=== PATIENT | male | born 1990 | race Caucasian/White ===

== ENCOUNTER 2017-04-30 16:23 | Emergency (ER) | payer OTHER ==
[~2017-04-30 16:23] MED LIST: BACTRIM DS1 TAB PO; OXYCONTIN C/R20 MG PO; PERCOCET1 TA1 PO
--- NOTE | 2017-04-30 17:43 | DIAGNOSTIC IMAGING REPORT ---
PROCEDURE: XR HAND 3 OR 4 VIEWS - RIGHT INDICATION: TRAUMA/INJURY TECHNIQUE: Four views. COMPARISON: Right hand x-ray 05/08/2011. FINDINGS: Fracture of the distal fifth metacarpal with mild volar angulation of the distal fragment. No additional abnormalities. IMPRESSION: 1. Right fifth metacarpal fracture.
--- NOTE | 2017-04-30 18:01 | ED CLINICAL REPORT ---
Clinical Report - Physicians/Mid Levels [facility] [address] [place] [address] 04/30/2017 16:25 Patient: JOSUE VIDAL Time Seen: 1640. Arrived- By private vehicle. Historian- patient. HISTORY OF PRESENT ILLNESS Chief Complaint: Injury to the right hand. The injury happened today. Occurred at home. ( punched the mount for a punching back on accident). Patient is experiencing moderate pain. Patient denies injury to the head or neck. No other injury. REVIEW OF SYSTEMS The patient has had swelling. No tingling, numbness, weakness, foreign body or skin laceration. All systems otherwise negative, except as recorded above. PAST HISTORY See nurses notes. The patient's dominant hand is the right. Tetanus immunization status is up-to-date. Medications: None. Allergies: Compazine. Penicillin. Reglan. SOCIAL HISTORY Smoker- current status unknown. Occasional alcohol use. History of drug use. No recent travel. Is a local resident. likes to play video games and hike. ADDITIONAL NOTES The nursing notes have been reviewed. PHYSICAL EXAM Vital Signs: 04/30/2017 16:32 BP: 125/85. HR: 103. RR: 19. O2 saturation: 99%. Temp: 97.5 F. Pain level now: 8/10. Blood pressure normal. Oxygen saturation normal. Appearance: Alert. Oriented X3. No acute distress. Head: Head atraumatic. (normocephalic). Neck: Normal inspection. Neck supple. C-spine non-tender. CVS: Normal heart rate and rhythm. Heart sounds normal. Pulses normal. Respiratory: No respiratory distress. Breath sounds normal. Chest nontender. Abdomen: No visible injury. Soft and nontender. Bowel sounds normal. Skin: Skin warm and dry. Skin intact. Extremities: Wrist injury present. (mild amount of swelling and ecchymosis to the distal aspect of the fourth and fifth metacarpals on the right hand. No bony other maladies. No crepitus. Capillary refill is less than 3 seconds in all fingers. Sensations intact. Radial pulses 2+ and symmetrical the contralateral side. No other signs of trauma to the upper extremity. Compartments are soft. Skin intact. no snuffbox tenderness). No tenderness in other areas. Hand and wrist exam otherwise negative. Extremities otherwise negative. Neuro, Vascular and Tendons: Vascular status intact. Sensation intact. Motor intact. Tendon function intact. Neuro: Oriented X 3. No motor deficit. No sensory deficit. LABS, X-RAYS, AND EKG Rt Hand X-ray: (PROCEDURE: XR HAND 3 OR 4 VIEWS - RIGHT INDICATION: TRAUMA/INJURY TECHNIQUE: Four views. COMPARISON: Right hand x-ray 05/08/2011. FINDINGS: Fracture of the distal fifth metacarpal with mild volar angulation of the distal fragment. No additional abnormalities. IMPRESSION: 1. Right fifth metacarpal fracture.). The X-rays were independently viewed by me and interpreted by the radiologist. The X-rays were discussed with the radiologist (via pacs). PROGRESS AND PROCEDURES Splint Application: Fiberglass ulnar gutter splint applied to right hand. Splint applied by tech with direct supervision by the ED physician. Reassessed extremity following splint application. Neurovascular intact. Follow-up recommended within 3 days. Course of Care: the patient is a pleasant 26-year-old male presenting for evaluation of right hand injury. At this time differential diagnosis includes dislocation, fracture, or contusion. No neurovascular compromise at this time. No concerns for compartment syndrome patient is agreeable to the treatment plan. Pain medication as been Offered. The patient's workup was remarkable for a mild angulation of the fifth metacarpal. Does not need reductio based on amount of angulation being < 40 degrees. patient was reevaluated after the splint was placed. Discussed the patient splint care as well as his diagnosis, home care, follow-up, and return precautions. All questions have been answered. The patient expressed understanding of these instructions and was agreeable to them. Prior to patient's discharge he was noted to be neurovascularly intact. Disposition: Discharged. Condition: good. CLINICAL IMPRESSION Closed mildly angulated fracture of the neck of the fifth metacarpal (acute right). INSTRUCTIONS Warnings: GENERAL WARNINGS: Return or contact your physician immediately if your condition worsens or changes unexpectedly, if not improving as expected, or if other problems arise. Specifically return if pain, vomiting, bleeding, breathing difficulty or fever. Your Current Medications: CONTINUE TAKING THE FOLLOWING MEDICATIONS: None*. Prescription Medications: Percocet 5 mg/325 mg: take 1 tablet orally every 6 hours as needed for pain. Dispense twenty (20). No refill. Substitution is permissible. OTC Medications: Motrin (available over the counter): take according to label instructions. Follow-up: Return to the emergency department as needed. Follow up with your doctor in three days. Reason for referral: recheck today's concerns. Summary of care provided to patient via paper. Screening today revealed the patient's blood pressure to be in the normal range. The patient should follow up with a primary care provider for blood pressure management. Understanding of the discharge instructions verbalized by patient. Follow-up with: [facility], , [address], , [place], [phone] Follow up in one week. Reason for referral: recheck today's concerns. Summary of care provided to patient via paper. (Electronically signed by eKmar Sahni Dr. 05/03/2017 10:00)
--- NOTE | 2017-04-30 18:01 | ED CLINICAL REPORT ---
Clinical Report - Physicians/Mid Levels [facility] [address] [place] [address] 04/30/2017 16:25 Patient: JOSUE VIDAL Time Seen: 1640. Arrived- By private vehicle. Historian- patient. HISTORY OF PRESENT ILLNESS Chief Complaint: Injury to the right hand. The injury happened today. Occurred at home. ( punched the mount for a punching back on accident). Patient is experiencing moderate pain. Patient denies injury to the head or neck. No other injury. REVIEW OF SYSTEMS The patient has had swelling. No tingling, numbness, weakness, foreign body or skin laceration. All systems otherwise negative, except as recorded above. PAST HISTORY See nurses notes. The patient's dominant hand is the right. Tetanus immunization status is up-to-date. Medications: None. Allergies: Compazine. Penicillin. Reglan. SOCIAL HISTORY Smoker- current status unknown. Occasional alcohol use. History of drug use. No recent travel. Is a local resident. likes to play video games and hike. ADDITIONAL NOTES The nursing notes have been reviewed. PHYSICAL EXAM Vital Signs: 04/30/2017 16:32 BP: 125/85. HR: 103. RR: 19. O2 saturation: 99%. Temp: 97.5 F. Pain level now: 8/10. Blood pressure normal. Oxygen saturation normal. Appearance: Alert. Oriented X3. No acute distress. Head: Head atraumatic. (normocephalic). Neck: Normal inspection. Neck supple. C-spine non-tender. CVS: Normal heart rate and rhythm. Heart sounds normal. Pulses normal. Respiratory: No respiratory distress. Breath sounds normal. Chest nontender. Abdomen: No visible injury. Soft and nontender. Bowel sounds normal. Skin: Skin warm and dry. Skin intact. Extremities: Wrist injury present. (mild amount of swelling and ecchymosis to the distal aspect of the fourth and fifth metacarpals on the right hand. No bony other maladies. No crepitus. Capillary refill is less than 3 seconds in all fingers. Sensations intact. Radial pulses 2+ and symmetrical the contralateral side. No other signs of trauma to the upper extremity. Compartments are soft. Skin intact. no snuffbox tenderness). No tenderness in other areas. Hand and wrist exam otherwise negative. Extremities otherwise negative. Neuro, Vascular and Tendons: Vascular status intact. Sensation intact. Motor intact. Tendon function intact. Neuro: Oriented X 3. No motor deficit. No sensory deficit. LABS, X-RAYS, AND EKG Rt Hand X-ray: (PROCEDURE: XR HAND 3 OR 4 VIEWS - RIGHT INDICATION: TRAUMA/INJURY TECHNIQUE: Four views. COMPARISON: Right hand x-ray 05/08/2011. FINDINGS: Fracture of the distal fifth metacarpal with mild volar angulation of the distal fragment. No additional abnormalities. IMPRESSION: 1. Right fifth metacarpal fracture.). The X-rays were independently viewed by me and interpreted by the radiologist. The X-rays were discussed with the radiologist (via pacs). PROGRESS AND PROCEDURES Splint Application: Fiberglass ulnar gutter splint applied to right hand. Splint applied by tech with direct supervision by the ED physician. Reassessed extremity following splint application. Neurovascular intact. Follow-up recommended within 3 days. Course of Care: the patient is a pleasant 26-year-old male presenting for evaluation of right hand injury. At this time differential diagnosis includes dislocation, fracture, or contusion. No neurovascular compromise at this time. No concerns for compartment syndrome patient is agreeable to the treatment plan. Pain medication as been Offered. The patient's workup was remarkable for a mild angulation of the fifth metacarpal. Does not need reductio based on amount of angulation being < 40 degrees. patient was reevaluated after the splint was placed. Discussed the patient splint care as well as his diagnosis, home care, follow-up, and return precautions. All questions have been answered. The patient expressed understanding of these instructions and was agreeable to them. Prior to patient's discharge he was noted to be neurovascularly intact. Disposition: Discharged. Condition: good. CLINICAL IMPRESSION Closed mildly angulated fracture of the neck of the fifth metacarpal (acute right). INSTRUCTIONS Warnings: GENERAL WARNINGS: Return or contact your physician immediately if your condition worsens or changes unexpectedly, if not improving as expected, or if other problems arise. Specifically return if pain, vomiting, bleeding, breathing difficulty or fever. Your Current Medications: CONTINUE TAKING THE FOLLOWING MEDICATIONS: None*. Prescription Medications: Percocet 5 mg/325 mg: take 1 tablet orally every 6 hours as needed for pain. Dispense twenty (20). No refill. Substitution is permissible. OTC Medications: Motrin (available over the counter): take according to label instructions. Follow-up: Return to the emergency department as needed. Follow up with your doctor in three days. Reason for referral: recheck today's concerns. Summary of care provided to patient via paper. Screening today revealed the patient's blood pressure to be in the normal range. The patient should follow up with a primary care provider for blood pressure management. Understanding of the discharge instructions verbalized by patient. Follow-up with: [facility], , [address], , [place], [phone] Follow up in one week. Reason for referral: recheck today's concerns. Summary of care provided to patient via paper. (Electronically signed by Kemar Sahni Dr. 05/03/2017 10:00)
--- NOTE | 2017-04-30 18:02 | ED NURSING NOTES ---
Clinical Report - Nurses [facility] [address] [place] [address] 04/30/2017 16:25 Patient: JOSUE VIDAL TRIAGE Triage time 16:32 Apr 30 2017. Chief Complaint: INJURY TO RIGHT HAND. INJURY TO THE RIGHT HAND. Alert. No acute distress. SEPSIS SCREEN: Sepsis Screen. Negative (no infection suspected/documented). OLIVER COMA SCORE: Oliver Coma Scale: 15- eyes open spontaneously (4); best verbal response- oriented x 4 (5); best motor response- obeys commands (6). --16:36 Franklin Stein R.N. 16:32 04/30/17. BP: 125/85. HR: 103. RR: 19. O2 saturation: 99%. Temp: 97.5 F. Pain level now: 07/07. --16:36 Franklin Stein R.N. Weight: 90.7 kg stated. Height/Length: 69 inches Per Patient. BMI: 29.5. --16:34 Franklin Stein R.N. Medications None. --16:32 Franklin Stein R.N. Medication/allergy information source: the patient. --16:36 Franklin Stein R.N. Allergies Reglan. --16:33 Franklin Stein R.N. Compazine. --16:33 Franklin Stein R.N. Penicillin. --16:33 Franklin Stein R.N. History Arrived by private vehicle. Historian: patient. Accompanied by friend. This occurred just prior to arrival. Occurred at home. ( pt punching a boxing bag, missed and hit wood frame in house). He has had weakness. Treatment SWAMPER: None. PAST MEDICAL HX: Tetanus status: up-to-date. Immunizations: up-to-date. SOCIAL HX: Smoker- current status unknown (cigarette). Occasional alcohol use. History of drug use: narcotics, methamphetamines, marijuana. No infectious disease exposure. ABUSE ASSESSMENT: No report of abuse. SELF HARM ASSESSMENT: A self harm assessment was performed. The patient answered "no" to the question "Do you have thoughts of harming or killing yourself?". FALL RISK ASSESSMENT: Fall risk assessment completed. No fall risk identified. NUTRITIONAL RISK ASSESSMENT: The nutritional risk assessment revealed no deficiencies. FUNCTIONAL ASSESSMENT: Functional assessment: no impairments noted. LEARNING NEEDS ASSESSMENT: The learning needs assessment revealed no barriers. SKIN INTEGRITY ASSESSMENT: Skin integrity risk assessment completed. No skin integrity risk identified. --16:36 Franklin Stein R.N. PROBLEMS: Peritonitis. Drug Poisoning. Suicide Attempt. Lifestyle / Substance Problems. Dental Pain. Chest Wall Pain. Dental Caries. Substance Abuse. Depression. Suicidal Ideation. Immunizations. Osteochondroma. --16:33 Franklin Stein R.N. ADDITIONAL SURGERIES: Fracture Repair. Right wrist. Víctor and screws in tibia. Splenectomy. Tonsillectomy. Tonsillectomy & Adenoidectomy. --16:33 Franklin Stein R.N. Interventions ID and allergy band on patient. --16:36 Franklin Stein R.N. PHYSICAL ASSESSMENT Ambulatory to room. Patient gowned. GENERAL / NEURO / PSYCH: Oriented X 4. Alert. Appears in no acute distress. EXTREMITIES: Capillary refill is less than 2 seconds in the extremities. Extremity pulses are within normal limits. Neuro-vascular status intact to the extremity. Right hand: tenderness and swelling (right hand swelling to base of 5th digit with abrasions to pointer finger). SKIN: Skin is warm and dry. He has an abrasion. --16:36 Franklin Stein RChase. NURSING PROGRESS NOTES Extremity elevated. Neuro-vascular extremity check. Patient identifiers checked. Call light placed in reach. Side rails up x 1. Bed placed in lowest position. Brakes of bed on. Patient ready for evaluation- chart flagged. Patient waiting for evaluation. --16:37 Franklin Stein R.N. 17:21 04/30/2017 Percocet (Oxycodone-Acetaminophen) PO 10/650 mg Tablets 1 tab given. Allergies verified, confirmed 5 rights and sedative warning given to the patient and patient's aircraft fuselage framer. --17:55 Franklin Stein R.N. 18:14 04/30/2017 Percocet (Oxycodone-Acetaminophen) PO 10/650 mg Tablets 1 tab given. Allergies verified, confirmed 5 rights and sedative warning given to the patient and patient's aircraft fuselage framer. --18:19 Franklin Stein R.N. DISPOSITION / DISCHARGE Departure time: 18:25 Apr 30 2017. Condition at departure: improved and stable. No learning barriers present. Discharge instructions provided and reviewed with the patient. Reviewed medication(s) side effects, precautions and dosing information. Prescription(s) given to the patient (Percocet). Reviewed splint care instructions. Activity restrictions (minimal use of injured extremity) reviewed. Follow up contact number Ortho. Patient verbalized understanding. Written instructions provided in Dutch. The patient was discharged by the physician. He was discharged home and accompanied by aircraft fuselage framer. He left the Emergency Department ambulatory and via private vehicle. Mems Integration Engineer driving. --18:31 Carrol Echeavrria R.N. 18:29 04/30/17. BP: 127/68. HR: 77. RR: 12. O2 saturation: 100% on room air. Pain level now: 06/06. --18:31 Carrol Echevarria R.N. Locked/Released at 04/30/2017 18:32 by Carrol Echevarria R.N.
--- NOTE | 2017-04-30 18:02 | ED ORDER SUMMARY ---
..... Patient: JOSUE VIDAL OrderSheet [facility] VisitID: [id number] [place] [address] 26y, M Registration Date/Time: 04/30/2017 ORDER SHEET Weight: 90.7 kg (stated) Allergies: Reglan, Compazine, Penicillin GENERAL ORDERS: Hand 3 or 4V Right Urgent (17:09 04/30/2017 Hiwot Betancourt) (Ack 17:12 OHernandez) (18:19 KPage-Kuchan R.N.) Ice (17:09 04/30/2017 Hiwot Betancourt) (17:11 KPage-Kuchan R.N.) MEDICATION ORDERS: Percocet PO 5/325 mg (HIGH ALERT MEDICATION, NOW) (17:08 04/30/2017 Hiwot Betancourt) (Ack 17:13 KPage-Kuchan R.N.) (17:55 KPage-Kuchan R.N.) Percocet PO 5/325 mg (HIGH ALERT MEDICATION, NOW) (17:57 04/30/2017 Hiwot Betancourt) (Ack 18:13 KPage-Kuchan R.N.) (18:19 KPage-Kuchan R.N.) IV FLUIDS: ORDER SHEET NOTES: [Electronically signed by Carrol Echevarria R.N. (18:32 04/30/2017)] [Electronically signed by Kemar Sahni Dr. (10:00 05/03/2017)] [Electronically locked/signed by Carrol Echevarria R.N. (18:32 04/30/2017)]
--- NOTE | 2017-04-30 18:02 | ED ORDER SUMMARY ---
..... Patient: JOSUE VIDAL OrderSheet [facility] VisitID: [id number] [place] [address] 26y, M Registration Date/Time: 04/30/2017 ORDER SHEET Weight: 90.7 kg (stated) Allergies: Reglan, Compazine, Penicillin GENERAL ORDERS: Hand 3 or 4V Right Urgent (17:09 04/30/2017 Hiwot Betancourt) (Ack 17:12 OHernandez) (18:19 KPage-Kuchan R.N.) Ice (17:09 04/30/2017 Hiwot Betancourt) (17:11 KPage-Kuchan R.N.) MEDICATION ORDERS: Percocet PO 5/325 mg (HIGH ALERT MEDICATION, NOW) (17:08 04/30/2017 Hiwot Betancourt) (Ack 17:13 KPage-Kuchan R.N.) (17:55 KPage-Kuchan R.N.) Percocet PO 5/325 mg (HIGH ALERT MEDICATION, NOW) (17:57 04/30/2017 Hiwot Betancourt) (Ack 18:13 KPage-Kuchan R.N.) (18:19 KPage-Kuchan R.N.) IV FLUIDS: ORDER SHEET NOTES: [Electronically signed by Carrol Echevarria R.N. (18:32 04/30/2017)] [Electronically signed by Kemar Sahni Dr. (10:00 05/03/2017)] [Electronically locked/signed by Carrol Echevarria R.N. (18:32 04/30/2017)]
--- NOTE | 2017-04-30 18:02 | ED NURSING NOTES ---
Clinical Report - Nurses [facility] [address] [place] [address] 04/30/2017 16:25 Patient: JOSUE VIDAL TRIAGE Triage time 16:32 Apr 30 2017. Chief Complaint: INJURY TO RIGHT HAND. INJURY TO THE RIGHT HAND. Alert. No acute distress. SEPSIS SCREEN: Sepsis Screen. Negative (no infection suspected/documented). OLIVER COMA SCORE: Oliver Coma Scale: 15- eyes open spontaneously (4); best verbal response- oriented x 4 (5); best motor response- obeys commands (6). --16:36 Franklin Stein R.N. 16:32 04/30/17. BP: 125/85. HR: 103. RR: 19. O2 saturation: 99%. Temp: 97.5 F. Pain level now: 07/07. --16:36 Franklin Stein R.N. Weight: 90.7 kg stated. Height/Length: 69 inches Per Patient. BMI: 29.5. --16:34 Franklin Stein R.N. Medications None. --16:32 Franklin Stein R.N. Medication/allergy information source: the patient. --16:36 Franklin Stein R.N. Allergies Reglan. --16:33 Franklin Stein R.N. Compazine. --16:33 Franklin Stein R.N. Penicillin. --16:33 Franklin Stein R.N. History Arrived by private vehicle. Historian: patient. Accompanied by friend. This occurred just prior to arrival. Occurred at home. ( pt punching a boxing bag, missed and hit wood frame in house). He has had weakness. Treatment COMMUNICATION STUDIES PROFESSOR: None. PAST MEDICAL HX: Tetanus status: up-to-date. Immunizations: up-to-date. SOCIAL HX: Smoker- current status unknown (cigarette). Occasional alcohol use. History of drug use: narcotics, methamphetamines, marijuana. No infectious disease exposure. ABUSE ASSESSMENT: No report of abuse. SELF HARM ASSESSMENT: A self harm assessment was performed. The patient answered "no" to the question "Do you have thoughts of harming or killing yourself?". FALL RISK ASSESSMENT: Fall risk assessment completed. No fall risk identified. NUTRITIONAL RISK ASSESSMENT: The nutritional risk assessment revealed no deficiencies. FUNCTIONAL ASSESSMENT: Functional assessment: no impairments noted. LEARNING NEEDS ASSESSMENT: The learning needs assessment revealed no barriers. SKIN INTEGRITY ASSESSMENT: Skin integrity risk assessment completed. No skin integrity risk identified. --16:36 Franklin Stein R.N. PROBLEMS: Peritonitis. Drug Poisoning. Suicide Attempt. Lifestyle / Substance Problems. Dental Pain. Chest Wall Pain. Dental Caries. Substance Abuse. Depression. Suicidal Ideation. Immunizations. Osteochondroma. --16:33 Franklin Stein R.N. ADDITIONAL SURGERIES: Fracture Repair. Right wrist. Víctor and screws in tibia. Splenectomy. Tonsillectomy. Tonsillectomy & Adenoidectomy. --16:33 Franklin Stein R.N. Interventions ID and allergy band on patient. --16:36 Franklin Stein R.N. PHYSICAL ASSESSMENT Ambulatory to room. Patient gowned. GENERAL / NEURO / PSYCH: Oriented X 4. Alert. Appears in no acute distress. EXTREMITIES: Capillary refill is less than 2 seconds in the extremities. Extremity pulses are within normal limits. Neuro-vascular status intact to the extremity. Right hand: tenderness and swelling (right hand swelling to base of 5th digit with abrasions to pointer finger). SKIN: Skin is warm and dry. He has an abrasion. --16:36 Franklin Stein RChase. NURSING PROGRESS NOTES Extremity elevated. Neuro-vascular extremity check. Patient identifiers checked. Call light placed in reach. Side rails up x 1. Bed placed in lowest position. Brakes of bed on. Patient ready for evaluation- chart flagged. Patient waiting for evaluation. --16:37 Franklin Stein R.N. 17:21 04/30/2017 Percocet (Oxycodone-Acetaminophen) PO 10/650 mg Tablets 1 tab given. Allergies verified, confirmed 5 rights and sedative warning given to the patient and patient's accounting manager assistant controller. --17:55 Franklin Stein R.N. 18:14 04/30/2017 Percocet (Oxycodone-Acetaminophen) PO 10/650 mg Tablets 1 tab given. Allergies verified, confirmed 5 rights and sedative warning given to the patient and patient's accounting manager assistant controller. --18:19 Franklin Stein R.N. DISPOSITION / DISCHARGE Departure time: 18:25 Apr 30 2017. Condition at departure: improved and stable. No learning barriers present. Discharge instructions provided and reviewed with the patient. Reviewed medication(s) side effects, precautions and dosing information. Prescription(s) given to the patient (Percocet). Reviewed splint care instructions. Activity restrictions (minimal use of injured extremity) reviewed. Follow up contact number Ortho. Patient verbalized understanding. Written instructions provided in Filipino. The patient was discharged by the physician. He was discharged home and accompanied by accounting manager assistant controller. He left the Emergency Department ambulatory and via private vehicle. Technical Product Manager driving. --18:31 Carrol Echevarria R.N. 18:29 04/30/17. BP: 127/68. HR: 77. RR: 12. O2 saturation: 100% on room air. Pain level now: 06/06. --18:31 Carrol Echevarria R.N. Locked/Released at 04/30/2017 18:32 by Carrol Echevarria R.N.
--- NOTE | 2017-05-03 10:01 | ED MAR SUMMARY ---
..... Medication Administration Record [facility] [address] [place] [address] Patient: JOSUE VIDAL Visit ID: [id number] 26y, M Weight: 90.7 kg Height/Length: 69 in BMI: 29.5 ALLERGIES: Penicillin, Compazine, Reglan Given 17:21 04/30/2017 Franklin Stein R.N. Medication Administered: PERCOCET [PO] (OXYCODONE-ACETAMINOPHEN), Dose: 1 tab 10/650 mg Tablets PO. Medication Ordered: Percocet PO 5/325 mg (HIGH ALERT MEDICATION, NOW). Given 18:14 04/30/2017 Franklin Stein R.N. Medication Administered: PERCOCET [PO] (OXYCODONE-ACETAMINOPHEN), Dose: 1 tab 10/650 mg Tablets PO. Medication Ordered: Percocet PO 5/325 mg (HIGH ALERT MEDICATION, NOW).
--- NOTE | 2017-05-03 10:01 | ED MED RECONCILIATION SUMMARY ---
Patient: JOSUE VIDAL Medication Reconciliation Report [facility] VisitID: [id number] [place] [address] 26y, M Registration Date/Time: 04/30/2017 Weight: 90.7 kg Height/Length: 69 in. BMI: 29.5 ALLERGIES: Compazine, Penicillin, Reglan The patient's Home Medications are listed below: NONE. The source(s) of the original Home Medication information: patient The following Medications were given to the patient in the Emergency Department: Percocet [PO] PO 1 tab, administered: 04/30/2017 5:21:00 PM Percocet [PO] PO 1 tab, administered: 04/30/2017 6:14:00 PM The following Medications were prescribed to the patient: Motrin (available over the counter): take according to label instructions. -- Kemar Sahni Dr. Percocet 5 mg/325 mg: take 1 tablet orally every 6 hours as needed for pain. Dispense twenty (20). No refill. Substitution is permissible. -- Kemar Sahni Dr.
--- NOTE | 2017-05-03 10:01 | ED MAR SUMMARY ---
..... Medication Administration Record [facility] [address] [place] [address] Patient: JOSUE VIDAL Visit ID: [id number] 26y, M Weight: 90.7 kg Height/Length: 69 in BMI: 29.5 ALLERGIES: Penicillin, Compazine, Reglan Given 17:21 04/30/2017 Franklin Stein R.N. Medication Administered: PERCOCET [PO] (OXYCODONE-ACETAMINOPHEN), Dose: 1 tab 10/650 mg Tablets PO. Medication Ordered: Percocet PO 5/325 mg (HIGH ALERT MEDICATION, NOW). Given 18:14 04/30/2017 Franklin Stein R.N. Medication Administered: PERCOCET [PO] (OXYCODONE-ACETAMINOPHEN), Dose: 1 tab 10/650 mg Tablets PO. Medication Ordered: Percocet PO 5/325 mg (HIGH ALERT MEDICATION, NOW).
--- NOTE | 2017-05-03 10:01 | ED MED RECONCILIATION SUMMARY ---
Patient: JOSUE VIDAL Medication Reconciliation Report [facility] VisitID: [id number] [place] [address] 26y, M Registration Date/Time: 04/30/2017 Weight: 90.7 kg Height/Length: 69 in. BMI: 29.5 ALLERGIES: Compazine, Penicillin, Reglan The patient's Home Medications are listed below: NONE. The source(s) of the original Home Medication information: patient The following Medications were given to the patient in the Emergency Department: Percocet [PO] PO 1 tab, administered: 04/30/2017 5:21:00 PM Percocet [PO] PO 1 tab, administered: 04/30/2017 6:14:00 PM The following Medications were prescribed to the patient: Motrin (available over the counter): take according to label instructions. -- Kemar Sahni Dr. Percocet 5 mg/325 mg: take 1 tablet orally every 6 hours as needed for pain. Dispense twenty (20). No refill. Substitution is permissible. -- Kemar Sahni Dr.
--- NOTE | 2017-05-03 10:01 | ED DISCHARGE INSTRUCTIONS ---
Patient: JOSUE VIDAL General Instructions [facility] VisitID: [id number] [address] [place] [address] 26y, M Registration Date/Time: 04/30/2017 Closed mildly angulated fracture of the neck of the fifth metacarpal (acute right). INSTRUCTIONS Warnings: GENERAL WARNINGS: Return or contact your physician immediately if your condition worsens or changes unexpectedly, if not improving as expected, or if other problems arise. Specifically return if pain, vomiting, bleeding, breathing difficulty or fever. Your Current Medications: CONTINUE TAKING THE FOLLOWING MEDICATIONS: None*. Prescription Medications: Percocet 5 mg/325 mg: take 1 tablet orally every 6 hours as needed for pain. Dispense twenty (20). No refill. Substitution is permissible. OTC Medications: Motrin (available over the counter): take according to label instructions. Follow-up: Return to the emergency department as needed. Follow up with your doctor in three days. Reason for referral: recheck today's concerns. Summary of care provided to patient via paper. Screening today revealed the patient's blood pressure to be in the normal range. The patient should follow up with a primary care provider for blood pressure management. Understanding of the discharge instructions verbalized by patient. Follow-up with: [facility], , [address] [place], [id number] Follow up in one week. Reason for referral: recheck today's concerns. Summary of care provided to patient via paper. ADDITIONAL INFORMATION Boxer Fracture You have a fracture (break) of one of the bones in your hand. This causes pain, swelling and sometimes bruising. This injury is treated with a splint or cast. It takes about 4-6 weeks to heal. Surgery may be needed for severe injuries. After the bone has healed, it is common for one knuckle to be slightly lower than the others, even if the bone was "set". This may be seen only when you make a fist and will not affect hand function. Home Care: 1) Keep your arm elevated to reduce pain and swelling. When sitting or lying down elevate your arm above the level of your heart. You can do this by placing your arm on a pillow that rests on your chest or on a pillow at your side. This is most important during the first 48 hours after injury. 2) Apply an ice pack (ice cubes in a plastic bag, wrapped in a towel) over the injured area for 20 minutes every 1-2 hours the first day. You can place the ice pack inside the sling and directly over the splint/cast. Continue with ice packs 3-4 times a day for the next two days, then as needed for the relief of pain and swelling. 3) Keep the cast/splint completely dry at all times. Bathe with your cast/splint out of the water, protected with a large plastic bag, rubber-banded at the top end. If a fiberglass cast/splint gets wet, you can dry it with a hair-dryer. 4) You may use acetaminophen (Tylenol) or ibuprofen (Motrin, Advil) to control pain, unless another pain medicine was prescribed. [ NOTE : If you have chronic liver or kidney disease or ever had a stomach ulcer or GI bleeding, talk with your doctor before using these medicines.] 5) If you cut, punctured or scraped your hand during this injury, there is a risk of infection. Watch for signs of infection listed below. Finish any antibiotics prescribed. Follow Up With Your Doctor Within One Week To Be Sure The Bone Is Healing Properly, Or As Advised By Our Staff. [NOTE: A radiologist will review any X-rays that were taken. We will notify you of any new findings that may affect your care.] Get Prompt Medical Attention If Any Of The Following Occur: The cast or splint becomes wet or soft Increased tightness or pain under the cast or splint Fingers become swollen, cold, blue, numb or tingly Bad odor from the splint/cast or you see wound fluid staining the cast Signs of infection: Fever, redness, warmth, swelling or drainage from the wound Fever of 100.4F (38C) or higher, or as directed by your healthcare provider Oxycodone Hydrochloride, Acetaminophen Oral tablet What is this medicine? ACETAMINOPHEN; OXYCODONE (a set a KENNY flo fen; ox i KOE done) is a pain reliever. It is used to treat mild to moderate pain. How should I use this medicine? Take this medicine by mouth with a full glass of water. Follow the directions on the prescription label. Take your medicine at regular intervals. Do not take your medicine more often than directed. Talk to your single stayer operator regarding the use of this medicine in children. Special care may be needed. Patients over 65 years old may have a stronger reaction and need a smaller dose. What side effects may I notice from receiving this medicine? Side effects that you should report to your doctor or health rn acute care as soon as possible: allergic reactions like skin rash, itching or hives, swelling of the face, lips, or tongue breathing difficulties, wheezing confusion light headedness or fainting spells severe stomach pain yellowing of the skin or the whites of the eyes Side effects that usually do not require medical attention (report to your doctor or health rn acute care if they continue or are bothersome): dizziness drowsiness nausea vomiting What may interact with this medicine? alcohol antihistamines barbiturates like amobarbital, butalbital, butabarbital, methohexital, pentobarbital, phenobarbital, thiopental, and secobarbital benztropine drugs for bladder problems like solifenacin, trospium, oxybutynin, tolterodine, hyoscyamine, and methscopolamine drugs for breathing problems like ipratropium and tiotropium drugs for certain stomach or intestine problems like propantheline, homatropine methylbromide, glycopyrrolate, atropine, belladonna, and dicyclomine general anesthetics like etomidate, ketamine, nitrous oxide, propofol, desflurane, enflurane, halothane, isoflurane, and sevoflurane medicines for depression, anxiety, or psychotic disturbances medicines for sleep muscle relaxants naltrexone narcotic medicines (opiates) for pain phenothiazines like perphenazine, thioridazine, chlorpromazine, mesoridazine, fluphenazine, prochlorperazine, promazine, and trifluoperazine scopolamine tramadol trihexyphenidyl What if I miss a dose? If you miss a dose, take it as soon as you can. If it is almost time for your next dose, take only that dose. Do not take double or extra doses. Where should I keep my medicine? Keep out of the reach of children. This medicine can be abused. Keep your medicine in a safe place to protect it from theft. Do not share this medicine with anyone. Selling or giving away this medicine is dangerous and against the law. Store at room temperature between 20 and 25 degrees C (68 and 77 degrees F). Keep container tightly closed. Protect from light. This medicine may cause accidental overdose and if it is taken by other adults, children, or pets. Flush any unused medicine down the toilet to reduce the chance of harm. Do not use the medicine after the expiration date. What should I tell my health care provider before I take this medicine? They need to know if you have any of these conditions: brain tumor Crohn's disease, inflammatory bowel disease, or ulcerative colitis drink more than 3 alcohol containing drinks per day drug abuse or addiction head injury heart or circulation problems kidney disease or problems going to the bathroom liver disease lung disease, asthma, or breathing problems an unusual or allergic reaction to acetaminophen, oxycodone, other opioid analgesics, other medicines, foods, dyes, or preservatives or trying to get breast-feeding What should I watch for while using this medicine? Tell your doctor or health rn acute care if your pain does not go away, if it gets worse, or if you have new or a different type of pain. You may develop tolerance to the medicine. Tolerance means that you will need a higher dose of the medication for pain relief. Tolerance is normal and is expected if you take this medicine for a long time. Do not suddenly stop taking your medicine because you may develop a severe reaction. Your body becomes used to the medicine. This does NOT mean you are addicted. Addiction is a behavior related to getting and using a drug for a non-medical reason. If you have pain, you have a medical reason to take pain medicine. Your doctor will tell you how much medicine to take. If your doctor wants you to stop the medicine, the dose will be slowly lowered over time to avoid any side effects. You may get drowsy or dizzy. Do not drive, use machinery, or do anything that needs mental alertness until you know how this medicine affects you. Do not stand or sit up quickly, especially if you are an older patient. This reduces the risk of dizzy or fainting spells. Alcohol may interfere with the effect of this medicine. Avoid alcoholic drinks. There are different types of narcotic medicines (opiates) for pain. If you take more than one type at the same time, you may have more side effects. Give your health care provider a list of all medicines you use. Your doctor will tell you how much medicine to take. Do not take more medicine than directed. Call emergency for help if you have problems breathing. The medicine will cause constipation. Try to have a bowel movement at least every 2 to 3 days. If you do not have a bowel movement for 3 days, call your doctor or health rn acute care. Do not take Tylenol (acetaminophen) or medicines that have acetaminophen with this medicine. Too much acetaminophen can be very dangerous. Many nonprescription medicines contain acetaminophen. Always read the labels carefully to avoid taking more acetaminophen. You have been given the following additional information: Fracture, Boxer's Oxycodone Hydrochloride, Acetaminophen Oral tablet (Electronically signed by Kemar Sahni Dr. 05/03/2017 10:00)
--- NOTE | 2017-05-03 10:01 | ED DISCHARGE INSTRUCTIONS ---
Patient: JOSUE VIDAL General Instructions [facility] VisitID: [id number] [address] [place] [address] 26y, M Registration Date/Time: 04/30/2017 Closed mildly angulated fracture of the neck of the fifth metacarpal (acute right). INSTRUCTIONS Warnings: GENERAL WARNINGS: Return or contact your physician immediately if your condition worsens or changes unexpectedly, if not improving as expected, or if other problems arise. Specifically return if pain, vomiting, bleeding, breathing difficulty or fever. Your Current Medications: CONTINUE TAKING THE FOLLOWING MEDICATIONS: None*. Prescription Medications: Percocet 5 mg/325 mg: take 1 tablet orally every 6 hours as needed for pain. Dispense twenty (20). No refill. Substitution is permissible. OTC Medications: Motrin (available over the counter): take according to label instructions. Follow-up: Return to the emergency department as needed. Follow up with your doctor in three days. Reason for referral: recheck today's concerns. Summary of care provided to patient via paper. Screening today revealed the patient's blood pressure to be in the normal range. The patient should follow up with a primary care provider for blood pressure management. Understanding of the discharge instructions verbalized by patient. Follow-up with: [facility], , [address] [place], [id number] Follow up in one week. Reason for referral: recheck today's concerns. Summary of care provided to patient via paper. ADDITIONAL INFORMATION Boxer Fracture You have a fracture (break) of one of the bones in your hand. This causes pain, swelling and sometimes bruising. This injury is treated with a splint or cast. It takes about 4-6 weeks to heal. Surgery may be needed for severe injuries. After the bone has healed, it is common for one knuckle to be slightly lower than the others, even if the bone was "set". This may be seen only when you make a fist and will not affect hand function. Home Care: 1) Keep your arm elevated to reduce pain and swelling. When sitting or lying down elevate your arm above the level of your heart. You can do this by placing your arm on a pillow that rests on your chest or on a pillow at your side. This is most important during the first 48 hours after injury. 2) Apply an ice pack (ice cubes in a plastic bag, wrapped in a towel) over the injured area for 20 minutes every 1-2 hours the first day. You can place the ice pack inside the sling and directly over the splint/cast. Continue with ice packs 3-4 times a day for the next two days, then as needed for the relief of pain and swelling. 3) Keep the cast/splint completely dry at all times. Bathe with your cast/splint out of the water, protected with a large plastic bag, rubber-banded at the top end. If a fiberglass cast/splint gets wet, you can dry it with a hair-dryer. 4) You may use acetaminophen (Tylenol) or ibuprofen (Motrin, Advil) to control pain, unless another pain medicine was prescribed. [ NOTE : If you have chronic liver or kidney disease or ever had a stomach ulcer or GI bleeding, talk with your doctor before using these medicines.] 5) If you cut, punctured or scraped your hand during this injury, there is a risk of infection. Watch for signs of infection listed below. Finish any antibiotics prescribed. Follow Up With Your Doctor Within One Week To Be Sure The Bone Is Healing Properly, Or As Advised By Our Staff. [NOTE: A radiologist will review any X-rays that were taken. We will notify you of any new findings that may affect your care.] Get Prompt Medical Attention If Any Of The Following Occur: The cast or splint becomes wet or soft Increased tightness or pain under the cast or splint Fingers become swollen, cold, blue, numb or tingly Bad odor from the splint/cast or you see wound fluid staining the cast Signs of infection: Fever, redness, warmth, swelling or drainage from the wound Fever of 100.4F (38C) or higher, or as directed by your healthcare provider Oxycodone Hydrochloride, Acetaminophen Oral tablet What is this medicine? ACETAMINOPHEN; OXYCODONE (a set a KENNY flo fen; ox i KOE done) is a pain reliever. It is used to treat mild to moderate pain. How should I use this medicine? Take this medicine by mouth with a full glass of water. Follow the directions on the prescription label. Take your medicine at regular intervals. Do not take your medicine more often than directed. Talk to your commercial technician regarding the use of this medicine in children. Special care may be needed. Patients over 65 years old may have a stronger reaction and need a smaller dose. What side effects may I notice from receiving this medicine? Side effects that you should report to your doctor or health foster care social worker as soon as possible: allergic reactions like skin rash, itching or hives, swelling of the face, lips, or tongue breathing difficulties, wheezing confusion light headedness or fainting spells severe stomach pain yellowing of the skin or the whites of the eyes Side effects that usually do not require medical attention (report to your doctor or health foster care social worker if they continue or are bothersome): dizziness drowsiness nausea vomiting What may interact with this medicine? alcohol antihistamines barbiturates like amobarbital, butalbital, butabarbital, methohexital, pentobarbital, phenobarbital, thiopental, and secobarbital benztropine drugs for bladder problems like solifenacin, trospium, oxybutynin, tolterodine, hyoscyamine, and methscopolamine drugs for breathing problems like ipratropium and tiotropium drugs for certain stomach or intestine problems like propantheline, homatropine methylbromide, glycopyrrolate, atropine, belladonna, and dicyclomine general anesthetics like etomidate, ketamine, nitrous oxide, propofol, desflurane, enflurane, halothane, isoflurane, and sevoflurane medicines for depression, anxiety, or psychotic disturbances medicines for sleep muscle relaxants naltrexone narcotic medicines (opiates) for pain phenothiazines like perphenazine, thioridazine, chlorpromazine, mesoridazine, fluphenazine, prochlorperazine, promazine, and trifluoperazine scopolamine tramadol trihexyphenidyl What if I miss a dose? If you miss a dose, take it as soon as you can. If it is almost time for your next dose, take only that dose. Do not take double or extra doses. Where should I keep my medicine? Keep out of the reach of children. This medicine can be abused. Keep your medicine in a safe place to protect it from theft. Do not share this medicine with anyone. Selling or giving away this medicine is dangerous and against the law. Store at room temperature between 20 and 25 degrees C (68 and 77 degrees F). Keep container tightly closed. Protect from light. This medicine may cause accidental overdose and if it is taken by other adults, children, or pets. Flush any unused medicine down the toilet to reduce the chance of harm. Do not use the medicine after the expiration date. What should I tell my health care provider before I take this medicine? They need to know if you have any of these conditions: brain tumor Crohn's disease, inflammatory bowel disease, or ulcerative colitis drink more than 3 alcohol containing drinks per day drug abuse or addiction head injury heart or circulation problems kidney disease or problems going to the bathroom liver disease lung disease, asthma, or breathing problems an unusual or allergic reaction to acetaminophen, oxycodone, other opioid analgesics, other medicines, foods, dyes, or preservatives or trying to get breast-feeding What should I watch for while using this medicine? Tell your doctor or health foster care social worker if your pain does not go away, if it gets worse, or if you have new or a different type of pain. You may develop tolerance to the medicine. Tolerance means that you will need a higher dose of the medication for pain relief. Tolerance is normal and is expected if you take this medicine for a long time. Do not suddenly stop taking your medicine because you may develop a severe reaction. Your body becomes used to the medicine. This does NOT mean you are addicted. Addiction is a behavior related to getting and using a drug for a non-medical reason. If you have pain, you have a medical reason to take pain medicine. Your doctor will tell you how much medicine to take. If your doctor wants you to stop the medicine, the dose will be slowly lowered over time to avoid any side effects. You may get drowsy or dizzy. Do not drive, use machinery, or do anything that needs mental alertness until you know how this medicine affects you. Do not stand or sit up quickly, especially if you are an older patient. This reduces the risk of dizzy or fainting spells. Alcohol may interfere with the effect of this medicine. Avoid alcoholic drinks. There are different types of narcotic medicines (opiates) for pain. If you take more than one type at the same time, you may have more side effects. Give your health care provider a list of all medicines you use. Your doctor will tell you how much medicine to take. Do not take more medicine than directed. Call emergency for help if you have problems breathing. The medicine will cause constipation. Try to have a bowel movement at least every 2 to 3 days. If you do not have a bowel movement for 3 days, call your doctor or health foster care social worker. Do not take Tylenol (acetaminophen) or medicines that have acetaminophen with this medicine. Too much acetaminophen can be very dangerous. Many nonprescription medicines contain acetaminophen. Always read the labels carefully to avoid taking more acetaminophen. You have been given the following additional information: Fracture, Boxer's Oxycodone Hydrochloride, Acetaminophen Oral tablet (Electronically signed by Kemar Sahni Dr. 05/03/2017 10:00)
== END 2017-04-30 18:25 | disposition home or self-care (01) ==
LOC: ED SRH 16:23
DX: S62.336 Displaced fracture of neck of fifth metacarpal bone, right hand (principal); W22.8XXA Striking against or struck by other objects, initial encounter; Y93.9 Activity, unspecified; Y92.009 Unspecified place in unspecified non-institutional (private) residence as the place of occurrence of the external cause; Y99.9 Unspecified external cause status